=== PATIENT | male | born 1970 | race Caucasian/White ===

== ENCOUNTER 2016-10-17 09:27 | Emergency (ER) | payer OTHER, BC ==
[~2016-10-17] VITALS: Ht 177.8 cm; Wt 87.0 kg
[2016-10-17 10:02] VITALS: BP 126/87
== END 2016-10-17 10:02 | disposition home or self-care (01) | DRG 605 ==
LOC: ED 09:27
PROC: 0HQKXZZ Repair Right Lower Leg Skin, External Approach (ICD-10-PCS; principal; 2016-10-17)
DX: S81.811A Laceration without foreign body, right lower leg, initial encounter (principal); F17.210 Nicotine dependence, cigarettes, uncomplicated; G40.909 Epilepsy, unspecified, not intractable, without status epilepticus; W25.XXXA Contact with sharp glass, initial encounter